=== PATIENT | female | born 1930 | race Native Hawaiian/Other Pacific Islander ===

== ENCOUNTER 2019-02-27 17:06 | Inpatient (IN) | payer MEDICARE, OTHER ==
[~2019-02-27] VITALS: Ht 142.2 cm; Wt 53.5 kg
[~2019-02-27 17:06] MED LIST: ANAS1TAB7 PO; ATOR20TA86 PO; CLON0.2T PO; LEVO25TA4 PO; METF-444 PO
[2019-02-27] MEDS ORDERED: SODIUM CHLORIDE 0.9% 1,050 ML IV ONE (17:19)
[2019-02-27] MEDS ORDERED: 0.9% SODIUM CHLORIDE 10 ML SYRINGE IVP PRN ×3 (17:30→22:00)
[2019-02-27 18:00] LABS: BASOPHILS % (AUTO) 0.7 % (0.0-2.0); EOSINOPHILS % (AUTO) 0.4 % (1.0-6.0); HEMATOCRIT 26.2 % (36-46); HEMOGLOBIN 8.3 g/dL (12.0-16.0); LYMPHOCYTES # (AUTO) 1.3 K/uL (1.0-4.8); LYMPHOCYTES % (AUTO) 8.4 % (22.0-44.0); MEAN CORPUSCULAR HGB CONC 31.5 G/dL (31.0-37.0); MEAN CORPUSCULAR VOLUME 89 fL (80-100); MONOCYTES # (AUTO) 0.5 K/uL (0.1-1.0); MONOCYTES % (AUTO) 2.9 % (2.0-9.0); PLATELET COUNT (AUTO) 379 K/uL (150-450); RED BLOOD CELL COUNT(AUTO) 2.94 MIL/uL (4.00-5.20); RED CELL DISTRIBUTION WIDTH 17.6 % (11.5-14.5)
[2019-02-27 18:02] LABS: NEUTROPHILS % (AUTO) 87.6 % (40.0-70.0)
[2019-02-27 18:12] LABS: ANION GAP 10 mmol/L (8-16); CALCIUM, TOTAL 8.2 mg/dL (8.8-10.5); CARBON DIOXIDE 26 mmol/L (22-29); CHLORIDE 109 mmol/L (98-107); CREATININE 2.34 mg/dL (0.60-1.30); GLOMERULAR FILTR. RATE CALC 20 mL/min (>60); GLUCOSE,RANDOM 168 mg/dL (70-110); POTASSIUM 5.2 mmol/L (3.5-5.1); SODIUM SERUM 145 mmol/L (136-145); UREA NITROGEN, BLOOD 98 mg/dL (7-18)
[2019-02-27 18:28] LABS: APPEARANCE,URINE CLEAR (CLEAR); BILIRUBIN,URINE NEGATIVE (NEGATIVE); GLUCOSE, URINE (UA) NEGATIVE (NEGATIVE); KETONES,URINE NEGATIVE (NEGATIVE); LEUKOCYTE ESTERASE ,URINE NEGATIVE (NEGATIVE); NITRATE,URINE NEGATIVE (NEGATIVE); OCCULT BLOOD,URINE TRACE (NEGATIVE); PH,URINE 6.5 (5.0-8.0); PROTEIN,URINE TRACE (NEGATIVE)
[2019-02-27] MEDS ORDERED: CefTRIAXone 1 GM/DEXTROSE 50 ML IV ONE (18:30)
[2019-02-27 18:34] LABS: ALANINE AMINOTRANSFERASE 28 U/L (12-78); ALBUMIN 1.6 g/dL (3.4-5.0); ALKALINE PHOSPHATASE 108 U/L (46-116); ASPARTATE AMINOTRANSFERASE 47 U/L (15-37); BILIRUBIN,TOTAL 0.4 mg/dL (0.1-1.0); CREATINE KINASE, TOTAL ONLY 175 U/L (26-192); FREE T4 (FREE THYROXINE) 1.41 ng/dL (0.76-1.46); THYROID STIMULATING HORMONE 3.39 uIU/mL (0.36-3.74); TOTAL PROTEIN, SERUM 6.4 g/dL (6.4-8.2)
[2019-02-27 18:38] LABS: B-TYPE NATRIURETIC PEPTIDE 128 pg/mL (0-100)
[2019-02-27 18:40] LABS: BACTERIA,URINE Few /HPF (None Seen); SQUAMOUS EPITHELIAL CELL,UR Few /LPF (None Seen); WBC,URINE 0-2 /HPF (0-5)
[2019-02-27 18:43] LABS: RENAL EPITHELIAL CELLS,URINE Rare /LPF (None Seen)
[2019-02-27 19:50] LABS: LACTIC ACID 2.4 mmol/L (0.4-2.0)
[2019-02-27] MEDS ORDERED: PIPERACILLIN/TAZO 3.375 GM/D5W 50 ML IV ONE (20:00)
[2019-02-27] MEDS ORDERED: AZITHROMYCIN 500 MG/NS 250 ML IV ONE (20:30)
[2019-02-27] MEDS ORDERED: ONDANSETRON HCL 4 MG/2 ML VIAL IVP PRN ×2 (20:30→22:00)
[2019-02-27] MEDS ORDERED: ACETAMINOPHEN 325 MG TABLET PO PRN ×2 (20:30→22:00)
[2019-02-27] MEDS ORDERED: SODIUM CHLORIDE 0.9% 1,000 ML IV ONE (22:00)
[2019-02-27] MEDS ORDERED: ZOLPIDEM TARTRATE 5 MG TABLET PO PRN (22:00)
[2019-02-27] MEDS: DOCUSATE SODIUM 100 MG CAPSULE PO SCH (22:00)
[2019-02-27] MEDS ORDERED: IPRATROPIUM BROMIDE 0.5 MG/2.5 ML NEB SOLUTION NEB PRN (22:15)
[2019-02-27] MEDS ORDERED: ALBUTEROL SULFATE 2.5 MG/0.5 ML NEB SOLUTION NEB PRN (22:15)
[2019-02-27] MEDS ORDERED: ALBUMIN HUMAN 25%-12.5GM/50ML 50 ML IV ONE (23:00)
[2019-02-28] VITALS (10 sets, daily range): BP systolic 78–103; BP diastolic 46–68
[2019-02-28] MEDS: IPRATROPIUM BROMIDE 0.5 MG/2.5 ML NEB SOLUTION NEB SCH ×4 (02:00→20:16)
[2019-02-28] MEDS: ALBUTEROL SULFATE 2.5 MG/0.5 ML NEB SOLUTION NEB SCH ×4 (02:00→20:16)
[2019-02-28 03:03] LABS: INFLUENZA TYPE A NEGATIVE FOR TYPE A (NEGATIVE); INFLUENZA TYPE B NEGATIVE FOR TYPE B (NEGATIVE)
[2019-02-28] MEDS ORDERED: ALBUMIN HUMAN 25%-12.5GM/50ML 50 ML IV ONE (04:00)
[2019-02-28] MEDS: PIPERACILLIN SODIUM/TAZOBACTAM 2.25 GM in DEXTROSE 5%-WATER 50 ML IV SCH ×4 (06:00→23:11)
[2019-02-28 06:13] LABS: BASOPHILS % (AUTO) 0.2 % (0.0-2.0); EOSINOPHILS % (AUTO) 1.2 % (1.0-6.0); LYMPHOCYTES # (AUTO) 1.2 K/uL (1.0-4.8); LYMPHOCYTES % (AUTO) 9.8 % (22.0-44.0); MEAN CORPUSCULAR HEMOGLOBIN 28.6 pg (26.0-34.0); MEAN CORPUSCULAR HGB CONC 31.6 G/dL (31.0-37.0); MEAN CORPUSCULAR VOLUME 90 fL (80-100); MONOCYTES # (AUTO) 0.4 K/uL (0.1-1.0); MONOCYTES % (AUTO) 3.3 % (2.0-9.0); NEUTROPHILS # (AUTO) 10.3 K/uL (1.8-7.7); PLATELET COUNT (AUTO) 278 K/uL (150-450); RED BLOOD CELL COUNT(AUTO) 2.32 MIL/uL (4.00-5.20); RED CELL DISTRIBUTION WIDTH 17.6 % (11.5-14.5)
[2019-02-28 06:24] LABS: NEUTROPHILS % (AUTO) 85.5 % (40.0-70.0)
[2019-02-28 06:25] LABS: HEMOGLOBIN 6.6 g/dL (12.0-16.0)
[2019-02-28 06:27] LABS: HEMATOCRIT 20.9 % (36-46)
[2019-02-28 06:36] LABS: ALBUMIN 1.8 g/dL (3.4-5.0); BILIRUBIN,TOTAL 0.4 mg/dL (0.1-1.0); CALCIUM, TOTAL 7.9 mg/dL (8.8-10.5); CREATININE 2.15 mg/dL (0.60-1.30); MAGNESIUM 2.7 mg/dL (1.80-2.40); POTASSIUM 4.2 mmol/L (3.5-5.1); THYROID STIMULATING HORMONE 2.26 uIU/mL (0.36-3.74); TOTAL PROTEIN, SERUM 5.6 g/dL (6.4-8.2)
[2019-02-28] MEDS: LEVOTHYROXINE SODIUM 25 MCG TABLET PO SCH (06:37)
[2019-02-28 06:46] LABS: GLUCOMETER DEV NAME(LOC) 5S.1; GLUCOSE,POINT OF CARE 107 MG/DL (70-110)
[2019-02-28 07:38] LABS: BASOPHILS % (AUTO) 0.5 % (0.0-2.0); EOSINOPHILS % (AUTO) 1.5 % (1.0-6.0); LYMPHOCYTES # (AUTO) 0.9 K/uL (1.0-4.8); LYMPHOCYTES % (AUTO) 8.3 % (22.0-44.0); MEAN CORPUSCULAR HEMOGLOBIN 28.7 pg (26.0-34.0); MEAN CORPUSCULAR HGB CONC 31.9 G/dL (31.0-37.0); MEAN CORPUSCULAR VOLUME 90 fL (80-100); MONOCYTES # (AUTO) 0.3 K/uL (0.1-1.0); MONOCYTES % (AUTO) 3.2 % (2.0-9.0); NEUTROPHILS # (AUTO) 9.5 K/uL (1.8-7.7); PLATELET COUNT (AUTO) 277 K/uL (150-450); RED CELL DISTRIBUTION WIDTH 17.3 % (11.5-14.5)
[2019-02-28 07:42] LABS: NEUTROPHILS % (AUTO) 86.5 % (40.0-70.0)
[2019-02-28 07:43] LABS: HEMATOCRIT 20.7 % (36-46); HEMOGLOBIN 6.6 g/dL (12.0-16.0)
[2019-02-28] MEDS: ANASTROZOLE 1 MG TABLET PO SCH (08:33)
[2019-02-28] MEDS: DOCUSATE SODIUM 100 MG CAPSULE PO SCH (08:33)
[2019-02-28] MEDS: ATORVASTATIN CALCIUM 20 MG TABLET PO SCH (08:33)
[2019-02-28] MEDS ORDERED: PANTOPRAZOLE SODIUM 40 MG DR TABLET PO SCH (09:00)
[2019-02-28] MEDS ORDERED: PANTOPRAZOLE SODIUM 40 MG/VIAL IVP ONE (11:15)
[2019-02-28] MEDS ORDERED: INSULIN LISPRO 100 UNITS/ML SQ PRN (11:15)
[2019-02-28] MEDS ORDERED: DOCUSATE SODIUM 100 MG CAPSULE PO PRN (11:15)
[2019-02-28] MEDS ORDERED: INFLUENZA VIRUS VACCINE QVS 2019-20 (3YR+)/PF 60 MCG/0.5 ML SYRINGE IM ONE (11:30)
[2019-02-28] MEDS ORDERED: VANCOMYCIN HCL 750 MG in DEXTROSE 5%-WATER 250 ML IV ONE (11:30)
[2019-02-28] MEDS ORDERED: PNEUMOCOCCAL VACCINE POLYVALENT 0.5 ML VIAL [PPSV23] IM ONE (11:30)
[2019-02-28 12:11] LABS: GLUCOMETER DEV NAME(LOC) 5S.2A; GLUCOSE,POINT OF CARE 115 MG/DL (70-110)
[2019-02-28] MEDS: SODIUM CHLORIDE 0.45% 1,000 ML IV SCH (12:29)
[2019-02-28] MEDS ORDERED: SODIUM CHLORIDE 0.9% 100 ML ONE (12:54)
[2019-02-28] MEDS: PANTOPRAZOLE SODIUM 80 MG in SODIUM CHLORIDE 0.9% 100 ML IV SCH ×2 (13:41→23:06)
[2019-02-28 17:59] LABS: HEMOGLOBIN 8.8 g/dL (12.0-16.0)
[2019-02-28 18:41] LABS: LACTIC ACID 2.2 mmol/L (0.4-2.0)
[2019-02-28] MEDS ORDERED: SODIUM CHLORIDE 0.9% 500 ML IV ONE (21:56)
[2019-02-28 22:46] LABS: GLUCOMETER DEV NAME(LOC) 5N.2; GLUCOSE,POINT OF CARE 132 MG/DL (70-110)
[2019-02-28 23:14] LABS: CREATININE,URINE RANDOM 45.7 mg/dL (30.0-125.0); SODIUM,URINE RANDOM 10 mmol/l (20-110)
[2019-02-28 23:32] LABS: APPEARANCE,URINE CLOUDY (CLEAR); BILIRUBIN,URINE NEGATIVE (NEGATIVE); GLUCOSE, URINE (UA) NEGATIVE (NEGATIVE); KETONES,URINE NEGATIVE (NEGATIVE); LEUKOCYTE ESTERASE ,URINE SMALL (NEGATIVE); NITRATE,URINE NEGATIVE (NEGATIVE); OCCULT BLOOD,URINE LARGE (NEGATIVE); PROTEIN,URINE POS 1+ (NEGATIVE); UROBILINOGEN,URINE 0.2 mg/dL (<=1.0)
[2019-02-28 23:47] LABS: RBC,URINE 26-50 /HPF (0-2)
[2019-02-28 23:48] LABS: BACTERIA,URINE Few /HPF (None Seen); SQUAMOUS EPITHELIAL CELL,UR Few /LPF (None Seen); WBC,URINE 0-2 /HPF (0-5)
[2019-03-01] VITALS (9 sets, daily range): BP systolic 95–106; BP diastolic 53–68
[2019-03-01] MEDS: IPRATROPIUM BROMIDE 0.5 MG/2.5 ML NEB SOLUTION NEB SCH ×4 (02:59→19:39)
[2019-03-01] MEDS: ALBUTEROL SULFATE 2.5 MG/0.5 ML NEB SOLUTION NEB SCH ×4 (03:00→19:40)
[2019-03-01] MEDS: SODIUM CHLORIDE 0.45% 1,000 ML IV SCH (04:07)
[2019-03-01] MEDS: PIPERACILLIN SODIUM/TAZOBACTAM 2.25 GM in DEXTROSE 5%-WATER 50 ML IV SCH ×2 (05:07→12:15)
[2019-03-01 05:56] LABS: GLUCOMETER DEV NAME(LOC) 5N.2; GLUCOSE,POINT OF CARE 95 MG/DL (70-110)
[2019-03-01 05:56] LABS: GLUCOMETER DEV NAME(LOC) 5S.1; GLUCOSE,POINT OF CARE 97 MG/DL (70-110)
[2019-03-01] MEDS: LEVOTHYROXINE SODIUM 25 MCG TABLET PO SCH (06:00)
[2019-03-01 06:44] LABS: BASOPHILS % (AUTO) 0.1 % (0.0-2.0); EOSINOPHILS % (AUTO) 3.9 % (1.0-6.0); HEMATOCRIT 31.4 % (36-46); HEMOGLOBIN 10.4 g/dL (12.0-16.0); LYMPHOCYTES # (AUTO) 0.8 K/uL (1.0-4.8); LYMPHOCYTES % (AUTO) 7.5 % (22.0-44.0); MEAN CORPUSCULAR HEMOGLOBIN 28.6 pg (26.0-34.0); MEAN CORPUSCULAR HGB CONC 33.2 G/dL (31.0-37.0); MEAN CORPUSCULAR VOLUME 86 fL (80-100); MONOCYTES # (AUTO) 0.3 K/uL (0.1-1.0); MONOCYTES % (AUTO) 2.8 % (2.0-9.0); NEUTROPHILS # (AUTO) 9.1 K/uL (1.8-7.7); PLATELET COUNT (AUTO) 208 K/uL (150-450); RED BLOOD CELL COUNT(AUTO) 3.65 MIL/uL (4.00-5.20); RED CELL DISTRIBUTION WIDTH 17.2 % (11.5-14.5)
[2019-03-01 06:57] LABS: ALBUMIN 1.8 g/dL (3.4-5.0); BILIRUBIN,TOTAL 0.7 mg/dL (0.1-1.0); CALCIUM, TOTAL 7.2 mg/dL (8.8-10.5); CHOL/HDL RATIO 2.9 (3.9-5.7); CREATININE 1.79 mg/dL (0.60-1.30); MAGNESIUM 2.2 mg/dL (1.80-2.40); POTASSIUM 3.8 mmol/L (3.5-5.1); TOTAL PROTEIN, SERUM 5.6 g/dL (6.4-8.2)
[2019-03-01 07:11] LABS: NEUTROPHILS % (AUTO) 85.7 % (40.0-70.0)
[2019-03-01 07:15] LABS: LACTIC ACID 1.3 mmol/L (0.4-2.0)
[2019-03-01] MEDS: PANTOPRAZOLE SODIUM 80 MG in SODIUM CHLORIDE 0.9% 100 ML IV SCH ×2 (08:10→21:14)
[2019-03-01] MEDS: MULTIVITAMINS WITH MINERALS, THERAPEUTIC TABLET PO SCH (08:11)
[2019-03-01] MEDS: ATORVASTATIN CALCIUM 20 MG TABLET PO SCH (08:11)
[2019-03-01] MEDS: ASCORBIC ACID 500 MG TABLET PO SCH (08:11)
[2019-03-01] MEDS: ANASTROZOLE 1 MG TABLET PO SCH (08:11)
[2019-03-01 10:19] LABS: HEMATOCRIT 32.2 % (36-46); HEMOGLOBIN 10.7 g/dL (12.0-16.0)
[2019-03-01 13:06] LABS: C-REACTIVE PROTEIN QUANT 12.73 mg/dL (0.00-0.30)
[2019-03-01 14:46] LABS: GLUCOMETER DEV NAME(LOC) 5N.1; GLUCOSE,POINT OF CARE 76 MG/DL (70-110)
[2019-03-01] MEDS: TraMADol HCL 50 MG TABLET PO PRN (16:57)
[2019-03-01] MEDS: DEXTROSE 50%-WATER 25 GM/50 ML SYRINGE IVP PRN (17:58)
[2019-03-02 01:26] VITALS: BP 83/48
[2019-03-02] MEDS: IPRATROPIUM BROMIDE 0.5 MG/2.5 ML NEB SOLUTION NEB SCH ×5 (02:08→20:36)
[2019-03-02] MEDS: ALBUTEROL SULFATE 2.5 MG/0.5 ML NEB SOLUTION NEB SCH ×5 (02:08→20:37)
[2019-03-02] MEDS: SODIUM CHLORIDE 0.45% 1,000 ML IV SCH ×2 (04:13→23:09)
[2019-03-02 04:43] VITALS: BP 90/70
[2019-03-02] MEDS: DEXTROSE 50%-WATER 25 GM/50 ML SYRINGE IVP PRN (05:17)
[2019-03-02] MEDS: LEVOTHYROXINE SODIUM 25 MCG TABLET PO SCH (05:17)
[2019-03-02 05:52] LABS: CALCIUM, TOTAL 7.5 mg/dL (8.8-10.5); CREATININE 1.73 mg/dL (0.60-1.30)
[2019-03-02 06:17] LABS: GLUCOMETER DEV NAME(LOC) 5S.1; GLUCOSE,POINT OF CARE 55 MG/DL (70-110)
[2019-03-02 06:17] LABS: GLUCOMETER DEV NAME(LOC) 5S.1; GLUCOSE,POINT OF CARE 110 MG/DL (70-110)
[2019-03-02] MEDS ORDERED: VANCOMYCIN HCL 500 MG in DEXTROSE 5%-WATER 100 ML IV SCH (08:00)
[2019-03-02 08:03] LABS: BASOPHILS % (AUTO) 0.1 % (0.0-2.0); EOSINOPHILS % (AUTO) 4.9 % (1.0-6.0); HEMATOCRIT 33.2 % (36-46); HEMOGLOBIN 10.9 g/dL (12.0-16.0); LYMPHOCYTES # (AUTO) 0.7 K/uL (1.0-4.8); LYMPHOCYTES % (AUTO) 5.6 % (22.0-44.0); MEAN CORPUSCULAR HEMOGLOBIN 28.4 pg (26.0-34.0); MEAN CORPUSCULAR HGB CONC 32.9 G/dL (31.0-37.0); MEAN CORPUSCULAR VOLUME 86 fL (80-100); MONOCYTES # (AUTO) 0.2 K/uL (0.1-1.0); MONOCYTES % (AUTO) 1.8 % (2.0-9.0); NEUTROPHILS # (AUTO) 11.2 K/uL (1.8-7.7); PLATELET COUNT (AUTO) 233 K/uL (150-450); RED BLOOD CELL COUNT(AUTO) 3.84 MIL/uL (4.00-5.20); RED CELL DISTRIBUTION WIDTH 16.9 % (11.5-14.5)
[2019-03-02 08:08] VITALS: BP 112/88
[2019-03-02 08:08] LABS: NEUTROPHILS % (AUTO) 87.6 % (40.0-70.0)
[2019-03-02] MEDS: ASCORBIC ACID 500 MG TABLET PO SCH (08:10)
[2019-03-02] MEDS: ATORVASTATIN CALCIUM 20 MG TABLET PO SCH (08:10)
[2019-03-02] MEDS: PANTOPRAZOLE SODIUM 80 MG in SODIUM CHLORIDE 0.9% 100 ML IV SCH (08:10)
[2019-03-02] MEDS: MULTIVITAMINS WITH MINERALS, THERAPEUTIC TABLET PO SCH (08:10)
[2019-03-02] MEDS: SODIUM BICARBONATE 650 MG TABLET PO SCH ×2 (09:16→20:29)
[2019-03-02] MEDS: ANASTROZOLE 1 MG TABLET PO SCH (09:17)
[2019-03-02 11:40] VITALS: BP 98/55
[2019-03-02 13:37] LABS: GLUCOMETER DEV NAME(LOC) 5N.1; GLUCOSE,POINT OF CARE 70 MG/DL (70-110)
[2019-03-02 13:37] LABS: GLUCOMETER DEV NAME(LOC) 5N.1; GLUCOSE,POINT OF CARE 65 MG/DL (70-110)
[2019-03-02 15:50] VITALS: BP 104/57
[2019-03-02 20:04] VITALS: BP 98/49
[2019-03-02] MEDS: PANTOPRAZOLE SODIUM 40 MG/VIAL IVP SCH (20:28)
[2019-03-02] MEDS ORDERED: SODIUM CHLORIDE 0.9% 1,000 ML IV ONE (23:50)
[2019-03-03] VITALS (7 sets, daily range): BP systolic 91–121; BP diastolic 50–63
[2019-03-03] MEDS: IPRATROPIUM BROMIDE 0.5 MG/2.5 ML NEB SOLUTION NEB SCH ×4 (01:50→20:00)
[2019-03-03] MEDS: ALBUTEROL SULFATE 2.5 MG/0.5 ML NEB SOLUTION NEB SCH ×4 (01:50→20:00)
[2019-03-03] MEDS: LEVOTHYROXINE SODIUM 25 MCG TABLET PO SCH (05:31)
[2019-03-03 05:50] LABS: BASOPHILS % (AUTO) 0.3 % (0.0-2.0); EOSINOPHILS % (AUTO) 3.4 % (1.0-6.0); HEMATOCRIT 28.6 % (36-46); HEMOGLOBIN 9.3 g/dL (12.0-16.0); LYMPHOCYTES # (AUTO) 0.7 K/uL (1.0-4.8); LYMPHOCYTES % (AUTO) 5.4 % (22.0-44.0); MEAN CORPUSCULAR HEMOGLOBIN 28.3 pg (26.0-34.0); MEAN CORPUSCULAR HGB CONC 32.6 G/dL (31.0-37.0); MEAN CORPUSCULAR VOLUME 87 fL (80-100); MONOCYTES # (AUTO) 0.3 K/uL (0.1-1.0); MONOCYTES % (AUTO) 2.3 % (2.0-9.0); PLATELET COUNT (AUTO) 215 K/uL (150-450); RED BLOOD CELL COUNT(AUTO) 3.29 MIL/uL (4.00-5.20); RED CELL DISTRIBUTION WIDTH 16.9 % (11.5-14.5)
[2019-03-03 05:52] LABS: NEUTROPHILS % (AUTO) 88.6 % (40.0-70.0)
[2019-03-03 05:56] LABS: GLUCOMETER DEV NAME(LOC) 5N.2; GLUCOSE,POINT OF CARE 143 MG/DL (70-110)
[2019-03-03 05:56] LABS: GLUCOMETER DEV NAME(LOC) 5N.2; GLUCOSE,POINT OF CARE 112 MG/DL (70-110)
[2019-03-03 06:06] LABS: CALCIUM, TOTAL 6.8 mg/dL (8.8-10.5); CREATININE 1.61 mg/dL (0.60-1.30); MAGNESIUM 2.1 mg/dL (1.80-2.40); PHOSPHORUS 3.5 mg/dL (2.5-4.9); POTASSIUM 3.8 mmol/L (3.5-5.1)
[2019-03-03] MEDS ORDERED: VANCOMYCIN HCL 500 MG in DEXTROSE 5%-WATER 100 ML IV SCH (08:00)
[2019-03-03] MEDS: MULTIVITAMINS WITH MINERALS, THERAPEUTIC TABLET PO SCH (09:00)
[2019-03-03] MEDS: ATORVASTATIN CALCIUM 20 MG TABLET PO SCH (09:00)
[2019-03-03] MEDS: ANASTROZOLE 1 MG TABLET PO SCH (09:00)
[2019-03-03] MEDS: SODIUM BICARBONATE 650 MG TABLET PO SCH ×2 (09:00→20:51)
[2019-03-03] MEDS: ASCORBIC ACID 500 MG TABLET PO SCH (09:00)
[2019-03-03] MEDS: PANTOPRAZOLE SODIUM 40 MG/VIAL IVP SCH ×2 (09:02→20:51)
[2019-03-03] MEDS: CeFAZolin 1 GM/DEXTROSE 50 ML IV SCH ×2 (14:05→23:54)
[2019-03-03] MEDS: SODIUM CHLORIDE 0.45% 1,000 ML IV SCH (14:08)
[2019-03-03] MEDS: DEXTROSE 50%-WATER 25 GM/50 ML SYRINGE IVP PRN (18:22)
[2019-03-03 18:52] LABS: GLUCOMETER DEV NAME(LOC) 5N.1; GLUCOSE,POINT OF CARE 95 MG/DL (70-110)
[2019-03-04] MEDS: ALBUTEROL SULFATE 2.5 MG/0.5 ML NEB SOLUTION NEB SCH ×4 (02:00→20:03)
[2019-03-04] MEDS: IPRATROPIUM BROMIDE 0.5 MG/2.5 ML NEB SOLUTION NEB SCH ×4 (02:00→20:03)
[2019-03-04] MEDS: SODIUM CHLORIDE 0.45% 1,000 ML IV SCH (05:18)
[2019-03-04] MEDS: LEVOTHYROXINE SODIUM 25 MCG TABLET PO SCH (05:38)
[2019-03-04 05:40] VITALS: BP 104/51
[2019-03-04] MEDS ORDERED: POVIDONE-IODINE 30 GM OINTMENT TP ONE (06:35)
[2019-03-04] MEDS ORDERED: LIDOCAINE/PF 1% 30 ML VIAL ONE (06:36)
[2019-03-04] MEDS ORDERED: SODIUM CL IRRIG SOLN BAG 3,000 ML IRRIG ONE (06:36)
[2019-03-04] MEDS ORDERED: BUPIVACAINE HCL/PF 0.5% 30 ML VIAL ONE (06:36)
[2019-03-04] MEDS ORDERED: SODIUM CHLORIDE 0.9% 1,000 ML IV ONE (07:05)
[2019-03-04] MEDS ORDERED: BACITRACIN 50,000 UNITS/VIAL ONE (07:25)
[2019-03-04 07:29] LABS: BASOPHILS % (AUTO) 0.3 % (0.0-2.0); EOSINOPHILS % (AUTO) 5.4 % (1.0-6.0); HEMATOCRIT 32.3 % (36-46); HEMOGLOBIN 10.5 g/dL (12.0-16.0); LYMPHOCYTES # (AUTO) 0.7 K/uL (1.0-4.8); LYMPHOCYTES % (AUTO) 5.6 % (22.0-44.0); MEAN CORPUSCULAR HEMOGLOBIN 28.1 pg (26.0-34.0); MEAN CORPUSCULAR HGB CONC 32.6 G/dL (31.0-37.0); MEAN CORPUSCULAR VOLUME 86 fL (80-100); MONOCYTES # (AUTO) 0.3 K/uL (0.1-1.0); MONOCYTES % (AUTO) 2.3 % (2.0-9.0); NEUTROPHILS # (AUTO) 11.7 K/uL (1.8-7.7); PLATELET COUNT (AUTO) 265 K/uL (150-450); RED BLOOD CELL COUNT(AUTO) 3.75 MIL/uL (4.00-5.20); RED CELL DISTRIBUTION WIDTH 16.8 % (11.5-14.5)
[2019-03-04 07:32] LABS: NEUTROPHILS % (AUTO) 86.4 % (40.0-70.0)
[2019-03-04 07:47] LABS: C-REACTIVE PROTEIN QUANT 16.44 mg/dL (0.00-0.30); CALCIUM, TOTAL 7.6 mg/dL (8.8-10.5); CREATININE 1.59 mg/dL (0.60-1.30); POTASSIUM 3.6 mmol/L (3.5-5.1)
[2019-03-04] MEDS ORDERED: FentaNYL CITRATE-PF 100 MCG/2 ML VIAL IVP PRN (08:00)
[2019-03-04 10:18] LABS: ALBUMIN 1.4 g/dL (3.4-5.0); BILIRUBIN,TOTAL 0.3 mg/dL (0.1-1.0); TOTAL PROTEIN, SERUM 5.4 g/dL (6.4-8.2)
[2019-03-04 10:31] LABS: GLUCOMETER DEV NAME(LOC) 5S.2A; GLUCOSE,POINT OF CARE 139 MG/DL (70-110)
[2019-03-04 10:31] LABS: GLUCOMETER DEV NAME(LOC) 5S.2A; GLUCOSE,POINT OF CARE 103 MG/DL (70-110)
[2019-03-04 11:20] VITALS: BP 109/60
[2019-03-04] MEDS: CeFAZolin 1 GM/DEXTROSE 50 ML IV SCH ×2 (12:18→23:23)
[2019-03-04] MEDS: MULTIVITAMINS WITH MINERALS, THERAPEUTIC TABLET PO SCH (12:19)
[2019-03-04] MEDS: ATORVASTATIN CALCIUM 20 MG TABLET PO SCH (12:19)
[2019-03-04] MEDS: PANTOPRAZOLE SODIUM 40 MG/VIAL IVP SCH ×2 (12:19→19:45)
[2019-03-04] MEDS: ASCORBIC ACID 500 MG TABLET PO SCH (12:19)
[2019-03-04] MEDS: SODIUM BICARBONATE 650 MG TABLET PO SCH ×2 (12:19→19:45)
[2019-03-04] MEDS: OXYGEN THERAPY IH SCH ×2 (12:20→20:00)
[2019-03-04] MEDS: ANASTROZOLE 1 MG TABLET PO SCH (12:23)
[2019-03-04 15:25] VITALS: BP 100/58
[2019-03-04 17:06] LABS: GLUCOMETER DEV NAME(LOC) 5N.2; GLUCOSE,POINT OF CARE 115 MG/DL (70-110)
[2019-03-04 17:07] LABS: GLUCOMETER DEV NAME(LOC) 5N.2; GLUCOSE,POINT OF CARE 64 MG/DL (70-110)
[2019-03-04 17:07] LABS: GLUCOMETER DEV NAME(LOC) 5N.2; GLUCOSE,POINT OF CARE 92 MG/DL (70-110)
[2019-03-04 17:07] LABS: GLUCOMETER DEV NAME(LOC) 5N.2; GLUCOSE,POINT OF CARE 108 MG/DL (70-110)
[2019-03-04 20:11] VITALS: BP 102/59
[2019-03-04 21:06] LABS: GLUCOMETER DEV NAME(LOC) 5N.2; GLUCOSE,POINT OF CARE 125 MG/DL (70-110)
[2019-03-04 21:06] LABS: GLUCOMETER DEV NAME(LOC) 5N.2; GLUCOSE,POINT OF CARE 118 MG/DL (70-110)
[2019-03-05] VITALS (7 sets, daily range): BP systolic 96–116; BP diastolic 45–65
[2019-03-05] MEDS: ALBUTEROL SULFATE 2.5 MG/0.5 ML NEB SOLUTION NEB SCH ×4 (02:32→19:50)
[2019-03-05] MEDS: IPRATROPIUM BROMIDE 0.5 MG/2.5 ML NEB SOLUTION NEB SCH ×4 (02:32→19:49)
[2019-03-05] MEDS ORDERED: FentaNYL CITRATE-PF 100 MCG/2 ML VIAL IVP ONE (03:01)
[2019-03-05] MEDS ORDERED: PROPOFOL 1% 20 ML VIAL IVP ONE (03:01)
[2019-03-05] MEDS ORDERED: 0.9% SODIUM CHLORIDE 10 ML VIAL IVP ONE (03:01)
[2019-03-05] MEDS: LEVOTHYROXINE SODIUM 25 MCG TABLET PO SCH (05:16)
[2019-03-05 07:25] LABS: BASOPHILS % (AUTO) 0.4 % (0.0-2.0); EOSINOPHILS % (AUTO) 3.1 % (1.0-6.0); HEMATOCRIT 29.9 % (36-46); HEMOGLOBIN 10.1 g/dL (12.0-16.0); LYMPHOCYTES # (AUTO) 0.6 K/uL (1.0-4.8); LYMPHOCYTES % (AUTO) 5.4 % (22.0-44.0); MEAN CORPUSCULAR HEMOGLOBIN 29.2 pg (26.0-34.0); MEAN CORPUSCULAR HGB CONC 33.9 G/dL (31.0-37.0); MEAN CORPUSCULAR VOLUME 86 fL (80-100); MONOCYTES # (AUTO) 0.3 K/uL (0.1-1.0); NEUTROPHILS # (AUTO) 9.7 K/uL (1.8-7.7); PLATELET COUNT (AUTO) 287 K/uL (150-450); RED BLOOD CELL COUNT(AUTO) 3.47 MIL/uL (4.00-5.20); RED CELL DISTRIBUTION WIDTH 16.9 % (11.5-14.5)
[2019-03-05 07:26] LABS: NEUTROPHILS % (AUTO) 88.1 % (40.0-70.0)
[2019-03-05] MEDS: OXYGEN THERAPY IH SCH ×2 (08:00→20:00)
[2019-03-05 08:01] LABS: ALBUMIN 1.2 g/dL (3.4-5.0); BILIRUBIN,TOTAL 0.2 mg/dL (0.1-1.0); CALCIUM, TOTAL 7.5 mg/dL (8.8-10.5); CREATININE 1.51 mg/dL (0.60-1.30); POTASSIUM 3.6 mmol/L (3.5-5.1); TOTAL PROTEIN, SERUM 4.9 g/dL (6.4-8.2)
[2019-03-05] MEDS: ASCORBIC ACID 500 MG TABLET PO SCH (08:42)
[2019-03-05] MEDS: ANASTROZOLE 1 MG TABLET PO SCH (08:42)
[2019-03-05] MEDS: PANTOPRAZOLE SODIUM 40 MG/VIAL IVP SCH ×2 (08:42→20:27)
[2019-03-05] MEDS: SODIUM BICARBONATE 650 MG TABLET PO SCH ×2 (08:42→21:00)
[2019-03-05] MEDS: MULTIVITAMINS WITH MINERALS, THERAPEUTIC TABLET PO SCH (08:42)
[2019-03-05] MEDS: ATORVASTATIN CALCIUM 20 MG TABLET PO SCH (08:42)
[2019-03-05] MEDS: CeFAZolin 1 GM/DEXTROSE 50 ML IV SCH ×2 (12:29→23:22)
[2019-03-05 20:07] LABS: GLUCOMETER DEV NAME(LOC) 5N.2; GLUCOSE,POINT OF CARE 123 MG/DL (70-110)
[2019-03-05 20:07] LABS: GLUCOMETER DEV NAME(LOC) 5N.2; GLUCOSE,POINT OF CARE 99 MG/DL (70-110)
[2019-03-05 20:07] LABS: GLUCOMETER DEV NAME(LOC) 5N.2; GLUCOSE,POINT OF CARE 156 MG/DL (70-110)
[2019-03-05 20:16] LABS: GLUCOMETER DEV NAME(LOC) 5N.1; GLUCOSE,POINT OF CARE 72 MG/DL (70-110)
[2019-03-06 00:32] LABS: APPEARANCE,URINE CLOUDY (CLEAR); BILIRUBIN,URINE NEGATIVE (NEGATIVE); GLUCOSE, URINE (UA) NEGATIVE (NEGATIVE); KETONES,URINE NEGATIVE (NEGATIVE); LEUKOCYTE ESTERASE ,URINE NEGATIVE (NEGATIVE); NITRATE,URINE NEGATIVE (NEGATIVE); OCCULT BLOOD,URINE TRACE (NEGATIVE); PH,URINE 5.5 (5.0-8.0); PROTEIN,URINE POS 1+ (NEGATIVE); UROBILINOGEN,URINE 0.2 mg/dL (<=1.0)
[2019-03-06 00:55] LABS: BACTERIA,URINE Rare /HPF (None Seen); RBC,URINE 0-2 /HPF (0-2); SQUAMOUS EPITHELIAL CELL,UR Few /LPF (None Seen)
[2019-03-06] MEDS: IPRATROPIUM BROMIDE 0.5 MG/2.5 ML NEB SOLUTION NEB SCH ×2 (02:52→08:00)
[2019-03-06] MEDS: ALBUTEROL SULFATE 2.5 MG/0.5 ML NEB SOLUTION NEB SCH ×2 (02:52→08:00)
[2019-03-06 05:28] VITALS: BP 111/57
[2019-03-06] MEDS: LEVOTHYROXINE SODIUM 25 MCG TABLET PO SCH (05:38)
[2019-03-06 06:54] LABS: BASOPHILS % (AUTO) 0.5 % (0.0-2.0); EOSINOPHILS % (AUTO) 6.2 % (1.0-6.0); HEMOGLOBIN 9.7 g/dL (12.0-16.0); LYMPHOCYTES # (AUTO) 0.7 K/uL (1.0-4.8); LYMPHOCYTES % (AUTO) 8.2 % (22.0-44.0); MEAN CORPUSCULAR HEMOGLOBIN 29.2 pg (26.0-34.0); MEAN CORPUSCULAR HGB CONC 33.5 G/dL (31.0-37.0); MEAN CORPUSCULAR VOLUME 87 fL (80-100); MONOCYTES # (AUTO) 0.4 K/uL (0.1-1.0); MONOCYTES % (AUTO) 4.4 % (2.0-9.0); NEUTROPHILS # (AUTO) 7.1 K/uL (1.8-7.7); NEUTROPHILS % (AUTO) 80.7 % (40.0-70.0); PLATELET COUNT (AUTO) 331 K/uL (150-450); RED BLOOD CELL COUNT(AUTO) 3.33 MIL/uL (4.00-5.20); RED CELL DISTRIBUTION WIDTH 16.6 % (11.5-14.5)
[2019-03-06 07:39] LABS: ALBUMIN 1.2 g/dL (3.4-5.0); BILIRUBIN,TOTAL 0.3 mg/dL (0.1-1.0); CALCIUM, TOTAL 7.5 mg/dL (8.8-10.5); CREATININE 1.29 mg/dL (0.60-1.30); POTASSIUM 3.6 mmol/L (3.5-5.1); TOTAL PROTEIN, SERUM 4.9 g/dL (6.4-8.2)
[2019-03-06 07:40] VITALS: BP 102/54
[2019-03-06] MEDS: OXYGEN THERAPY IH SCH (08:00)
[2019-03-06 08:18] LABS: C-REACTIVE PROTEIN QUANT 7.89 mg/dL (0.00-0.30)
[2019-03-06] MEDS: MULTIVITAMINS WITH MINERALS, THERAPEUTIC TABLET PO SCH (09:07)
[2019-03-06] MEDS: SODIUM BICARBONATE 650 MG TABLET PO SCH (09:07)
[2019-03-06] MEDS: ANASTROZOLE 1 MG TABLET PO SCH (09:07)
[2019-03-06] MEDS: PANTOPRAZOLE SODIUM 40 MG/VIAL IVP SCH (09:08)
[2019-03-06] MEDS: ATORVASTATIN CALCIUM 20 MG TABLET PO SCH (09:08)
[2019-03-06] MEDS: ASCORBIC ACID 500 MG TABLET PO SCH (09:08)
[2019-03-06] MEDS: TraMADol HCL 50 MG TABLET PO PRN (10:22)
[2019-03-06] MEDS ORDERED: SODIUM CL IRRIG SOLN BOTTLE 250 ML IRRIG ONE (10:31)
[2019-03-06 12:00] VITALS: BP 152/85
[2019-03-06] MEDS: CeFAZolin 1 GM/DEXTROSE 50 ML IV SCH (12:20)
[2019-03-06 12:22] LABS: GLUCOMETER DEV NAME(LOC) 5N.2; GLUCOSE,POINT OF CARE 93 MG/DL (70-110)
[2019-03-06] MEDS ORDERED: VANCOMYCIN HCL 1 GM/D5% WATER 200 ML IV ONE (13:45)
[2019-03-06] MEDS ORDERED: NYSTATIN 15 GM POWDER BOTTLE TP SCH (21:00)
[2019-03-07] MEDS ORDERED: VANCOMYCIN HCL 750 MG in DEXTROSE 5%-WATER 250 ML IV SCH (08:00)
[2019-03-07 11:46] LABS: GLUCOMETER DEV NAME(LOC) 5N.1; GLUCOSE,POINT OF CARE 96 MG/DL (70-110)
[2019-03-07 11:46] LABS: GLUCOMETER DEV NAME(LOC) 5N.1; GLUCOSE,POINT OF CARE 85 MG/DL (70-110)
[2019-03-24] MEDS ORDERED: DEXT15LI38 PO (15:55)
[2019-03-24] MEDS ORDERED: AZIT250T9 PO (15:55)
== END 2019-03-06 15:55 | DRG 853 ==
LOC: EMS 17:07 → 5S 21:12
PROVIDERS: ADMIT Internal Medicine; ATTEND Internal Medicine
PROC: 30233N1 Transfusion of Nonautologous Red Blood Cells into Peripheral Vein, Percutaneous Approach (ICD-10-PCS; principal; 2019-02-28)
PROC: 0J9R0ZZ Drainage of Left Foot Subcutaneous Tissue and Fascia, Open Approach (ICD-10-PCS; 2019-03-04)
DX: A41.01 Sepsis due to Methicillin susceptible Staphylococcus aureus (principal); E43 Unspecified severe protein-calorie malnutrition; J18.9 Pneumonia, unspecified organism; E87.2 Acidosis; N17.9 Acute kidney failure, unspecified; E87.0 Hyperosmolality and hypernatremia; D62 Acute posthemorrhagic anemia; E87.1 Hypo-osmolality and hyponatremia; L02.612 Cutaneous abscess of left foot; E78.5 Hyperlipidemia, unspecified; D64.9 Anemia, unspecified; F03.90 Unspecified dementia, unspecified severity, without behavioral disturbance, psychotic disturbance, mood disturbance, and anxiety; L89.92 Pressure ulcer of unspecified site, stage 2; N18.9 Chronic kidney disease, unspecified; I12.9 Hypertensive chronic kidney disease with stage 1 through stage 4 chronic kidney disease, or unspecified chronic kidney disease; E11.22 Type 2 diabetes mellitus with diabetic chronic kidney disease; R31.29 Other microscopic hematuria; R65.20 Severe sepsis without septic shock; E86.0 Dehydration; E03.9 Hypothyroidism, unspecified; R62.7 Adult failure to thrive; Z68.26 Body mass index [BMI] 26.0-26.9, adult
CPT/HCPCS: 73521; 76770; 82270; 82570; 83605; 83735; 84100; 84145; 84300; 84439; 84443; 84630; 85014; 85018; 86140; 86850; 86900; 86901; 86920; 87015; 87040; 87070; 87101; 87205; 87206; 87804; 93005; 93306; 93925; 94640; 96365; 96367; 96368; 99291; C9113; J0456; J0690; J0696; J2543; J2704; J3010; J3370; J3490; J7030; J7040; J7050; J7060; P9016; P9047